=== PATIENT | female | born 1990 | race African-American/Black ===

== ENCOUNTER 2016-08-26 14:20 | Emergency (ER) | payer MEDICAID ==
[2016-08-26 14:32] VITALS: BP 118/90
--- NOTE | 2016-08-26 14:44 | ED ---
Headache - History Of Current Complaint Chief Complaint: EDDentalPain Stated Complaint: DENTAL PAIN Time Seen by Provider: 08/26/16 14:22 Hx Obtained From: Patient, EMS Onset/Duration: Gradual Onset, Started weeks ago Initially Headache Was: Mild Timing: Constant Character: Dull, Throbbing - really tooth pain causing headache Aggravating Factor: Nothing Allevating Factors: Nothing - Risk Factors SAH Risk Factors: Negative Meningitis Risk Factors: Negative SDH Risk Factors: Negative Temporal Arteritis Risk Factors: Negative PMH/Surg Hx/FS Hx/Imm Hx Previously Healthy: Yes Endocrine/Hematology History: Denies: Hx Anticoagulant Therapy, Hx Blood Disorders, Hx Blood Transfusions, Hx Bone Marrow Disease, Hx Diabetes, Hx Systemic Lupus Erythematosus, Hx Sickle Cell Disease, Hx Thyroid Disease, Hx Anemia, Hx Unexplained Bleeding, Hx Coagulopothy, Autoimmune Disease, Other Endocrine/Hematological Disorders Cardiovascular History: Denies: Hx Aneurysm, Hx Angina, Hx Angioplasty, Hx Atrial Fibrillation, Hx Auto Implanted Cardiovert Defib, Hx Cardiac Arrest, Hx Cardiomegaly, Hx Congestive Heart Failure, Hx Coronary Artery Disease, Hx Deep Vein Thrombosis, Hx Embolism, Hx Hypercholesterolemia, Hx Hypotension, Hx Hypertension, Hx Myocardial Infarction, Hx Pacemaker/ICD, Hx Peripheral Vascular Disease, Hx Rheumatic Fever, Hx Syncope, Hx Valvular Heart Disease, Hx Supraventricular Ventricular Tachycardia Respiratory History: Denies: Hx Asthma, Hx Bronchopulmonary Dysplasia, Hx Chronic Bronchitis, Hx Cystic Fibrosis Infectious Disease History: No Infectious Disease History: Denies: Traveled Outside the [place] in Last 30 Days - Social History Alcohol Use: None Substance Use Type: Reports: None Smoking Status (MU): Never Smoked Tobacco Review of Systems Constitutional: Negative Negative: Fever, Chills, Fatigue, Skin Diaphoresis Eyes: Negative Negative: Photophobia, Blurred Vision, Diplopia ENT: Other Positive: Dental Pain. Negative: Epistaxis, Sore Throat Cardiovascular: Negative Negative: Palpitations, Chest Pain Respiratory: Negative Negative: Shortness Of Breath, Cough Gastrointestinal: Negative Negative: Abdominal Pain, Vomiting, Diarrhea Genitourinary: Negative Negative: no symptoms reported, see HPI, burning, dysuria Musculoskeletal: Negative Negative: Arthralgia, Myalgia, Decreased ROM Skin: Negative Negative: Rash, Bruising Positive: Headache. Negative: Weakness, Paresthesia, Numbness, Syncope, Slurred Speech Psychological: Normal Negative: Anxious, Depressed, Other All Other Systems Reviewed And Are Negative: Yes Physical Exam Triage Information Reviewed: Yes Vital Signs On Initial Exam: Initial Vitals Temp Pulse Resp BP Pulse Ox 98.2 F 107 20 118/90 97 08/26/16 14:25 08/26/16 14:25 08/26/16 14:25 08/26/16 14:25 08/26/16 14:25 Vital Signs Reviewed: Yes Appearance: Positive: Well-Appearing, Pain Distress - mild Skin: Positive: Warm, Skin Color Reflects Adequate Perfusion, Dry Head/Face: Positive: Normal Head/Face Inspection. Negative: Temporal Artery Tenderness, TMJ Tenderness Eyes: Positive: Normal, EOMI, ELISEO, Conjunctiva Clear ENT: Positive: Normal ENT inspection, Hearing grossly normal, Pharynx normal, Pharyngeal erythema, Nasal congestion, Nasal drainage Dental: Positive: Percussion Tenderness @ - left lower molar. Negative: Gross Decay/Caries @, Dental Fracture @, Abscess @ Neck: Positive: Supple - no trismus no facial swelling Respiratory/Lung Sounds: Positive: Clear to Auscultation, Breath Sounds Present Cardiovascular: Positive: Normal, RRR Abdomen Description: Positive: Nontender - gravid Bowel Sounds: Positive: Present Neurological: Positive: Normal, Sensory/Motor Intact, Alert, Oriented to Person Place, Time, CN Intact II-III Psychiatric: Positive: Normal AVPU Assessment: Alert - Parthenon Coma Scale Best Eye Response: 4 - Spontaneous Best Motor Response: 6 - Obeys Commands Best Verbal Response: 5 - Oriented Diagnostics - Vital Signs Vital Signs Temp Pulse Resp BP Pulse Ox 08/26/16 14:32 98.2 F 107 20 118/90 97 08/26/16 14:25 98.2 F 107 20 118/90 97 - Laboratory Lab Statement: Any lab studies that have been ordered have been reviewed, and results considered in the medical decision making process. Headache Course/Dx - Course Course Of Treatment: Patient primarily with tooth ache causing headache, vital signs stable no trismus, pt does not want narcotics and has already taken tylenol. Injection of lidocaine at the site was offered and pt declined. Pt is aware that she needs to return for facial swelling or trismus - Diagnoses Provider Diagnoses: Pain, dental Discharge - Discharge Plan Condition: Stable Disposition: HOME Prescriptions: Penicillin VK TAB* [Penicillin VK 250 mg Tab*] 500 mg PO QID #28 tab Referrals: J Carlos Pace MD [Doctor of Dental Medicine] -
[2016-08-26] MEDS ORDERED: Penicillin VK LIQ* 250 MG/5 ML BTL PO ONE (14:45)
[2016-08-26] MEDS ORDERED: Penicillin VK TAB* 250 MG PO ONE ×2 (15:01)
== END 2016-08-26 15:01 | disposition home or self-care (01) ==
LOC: ED 14:20
DX: K08.89 Other specified disorders of teeth and supporting structures (principal); R51 Headache
CPT/HCPCS: 99281; A9270-GY

== ENCOUNTER 2016-09-16 13:11 | Emergency (ER) | payer SELFPAY ==
[2016-09-16] MEDS ORDERED: Clindamycin 900 MG IVPREMIX(* 900 MG/50 ML SDV IV ONE (17:46)
[2016-09-16] MEDS ORDERED: Acetaminophen TAB* 325 MG PO ONE (17:48)
--- NOTE | 2016-09-16 18:46 | ED ---
Throat Pain/Nasal Congestion - HPI Summary HPI Summary: Patient is 8 month female who presents for the 2nd time in 1 month for dental complaint. She was seen on 08/26 for pain and swelling over left side of lower mandible. She was given penicillin. She states the abscess did not go away and now has grown. She denies fever, fatigue or other signs of infection. She is able to open her mouth. She is otherwise healthy. She feels as though there is a pocket of infection on the right lower side, but cannot feel it from the inside of the mouth. She has pain on palpation to the outside of her cheek. She denies difficulty opening mouth wide, but states it is limited. Denies difficulty swallowing or chewing food. She has taken Tylenol for relief. - History of Current Complaint Chief Complaint: EDDentalPain Time Seen by Provider: 09/16/16 16:26 Hx Obtained From: Patient Onset/Duration: Gradual Onset Severity: Moderate - Epiglottits Risk Factors Epiglottis Risk Factors: Negative - Allergies/Home Medications Allergies/Adverse Reactions: Allergies Allergy/AdvReac Type Severity Reaction Status Date / Time No Known Allergies Allergy Verified 08/26/16 14:55 PMH/Surg Hx/FS Hx/Imm Hx Previously Healthy: Yes Endocrine/Hematology History: Denies: Hx Anticoagulant Therapy, Hx Blood Disorders, Hx Blood Transfusions, Hx Bone Marrow Disease, Hx Diabetes, Hx Systemic Lupus Erythematosus, Hx Sickle Cell Disease, Hx Thyroid Disease, Hx Anemia, Hx Unexplained Bleeding, Other Endocrine/Hematological Disorders Cardiovascular History: Denies: Hx Aneurysm, Hx Angina, Hx Angioplasty, Hx Atrial Fibrillation, Hx Auto Implanted Cardiovert Defib, Hx Cardiac Arrest, Hx Cardiomegaly, Hx Congestive Heart Failure, Hx Coronary Artery Disease, Hx Deep Vein Thrombosis, Hx Embolism, Hx Hypercholesterolemia, Hx Hypotension, Hx Hypertension, Hx Myocardial Infarction, Hx Pacemaker/ICD, Hx Peripheral Vascular Disease, Hx Rheumatic Fever, Hx Syncope, Hx Valvular Heart Disease Respiratory History: Denies: Hx Asthma, Hx Bronchopulmonary Dysplasia, Hx Chronic Bronchitis, Hx Cystic Fibrosis - Immunization History Hx Pertussis Vaccination: No Immunizations Up to Date: Yes Infectious Disease History: No Infectious Disease History: Denies: Traveled Outside the [place] in Last 30 Days - Social History Occupation: Unemployed Lives: With Family Alcohol Use: None Hx Substance Use: No Substance Use Type: Reports: None Hx Tobacco Use: No Smoking Status (MU): Never Smoked Tobacco Do You Chew or Dip Tobacco: No Review of Systems Constitutional: Negative Eyes: Negative Positive: Dental Pain Cardiovascular: Negative Respiratory: Negative Positive: no symptoms reported, see HPI Neurological: Negative Psychological: Normal All Other Systems Reviewed And Are Negative: Yes Physical Exam Triage Information Reviewed: Yes Vital Signs On Initial Exam: Initial Vitals Temp Pulse Resp BP Pulse Ox 97.8 F 101 16 119/79 100 09/16/16 13:17 09/16/16 13:17 09/16/16 13:17 09/16/16 13:17 09/16/16 13:17 Vital Signs Reviewed: Yes Appearance: Positive: Well-Appearing, Well-Nourished Skin: Positive: Warm, Skin Color Reflects Adequate Perfusion Head/Face: Positive: Normal Head/Face Inspection Eyes: Positive: EOMI, ELISEO, Conjunctiva Clear Dental: Positive: Percussion Tenderness @ - left lower jaw, Abscess @ - left lower mandible near tooth 20. swelling noted over cheek with erythema. Respiratory/Lung Sounds: Positive: Clear to Auscultation, Breath Sounds Present Cardiovascular: Positive: Normal, RRR Musculoskeletal: Positive: Strength/ROM Intact Neurological: Positive: Normal, Sensory/Motor Intact Psychiatric: Positive: Normal - Cholo Coma Scale Coma Scale Total: 15 Diagnostics - Vital Signs Vital Signs Temp Pulse Resp BP Pulse Ox 09/16/16 17:59 77 16 100 09/16/16 15:20 98.8 F 99 16 120/77 98 09/16/16 13:17 97.8 F 101 16 119/79 100 - Laboratory Lab Statement: Any lab studies that have been ordered have been reviewed, and results considered in the medical decision making process. EENT Course/Dx - Course Course Of Treatment: Patient treated last month with penicillin, but states bump did not decrease in size. She now notes to larger abscess with swelling. No drainage, foul odor, or dental caries. Patient is 8 months and not safe to do contrasted maxillofacial CT scan. Clindamycin 900 IV given in ED. Dr. Cobb consulted. No ENT coverage currently. Patient denies trismus, able to eat and drink OK and is afebrile. Will treat with PO Clindamycin. Patient knows to follow up for worsening swelling, pain, trismus, difficulty swallowing or develops a fever. Patient is to follow up with OBGYN and dentist. Clindamycin safe in per UTD. - Differential Diagnoses Differential Diagnoses: Dental Abscess, Dental Caries, Odontogenic Pain - Diagnoses Provider Diagnoses: Dental abscess Discharge - Discharge Plan Condition: Stable Disposition: HOME Prescriptions: Clindamycin Cap(NF) [Cleocin 300 mg Cap(NF)] 300 mg PO Q6H #28 cap MDD 4 Patient Education Materials: Dental Abscess (ED) Referrals: No Primary Care Phys,NOPCP [Primary Care Provider] - Additional Instructions: DO NOT SMOKE. You have been diagnosed with dental pain with possible infection. Salt water rinses several times per day will improve healing time. Tylenol three times daily with meals for discomfort. You have been prescribed Clindamycin for 7 days. Take this medication as directed. Follow up with a dentist for routine care to prevent recurrence of infections. Follow up with OBGYN. If fever, worsening pain or swelling develops, see your PCP, dentist or come back to the Emergency Department. If you develop difficulty breathing, swallowing or feel like your throat is closing up, come back to ED immediately. Images - Images Dental: 1 - dental abscess with swelling
[2016-09-16 19:32] VITALS: BP 104/82
== END 2016-09-16 19:33 | disposition home or self-care (01) ==
LOC: ED 13:11
DX: K04.7 Periapical abscess without sinus (principal)
CPT/HCPCS: 96365; 99282; A9270-GY

== ENCOUNTER 2016-11-07 08:52 | Inpatient (IN) | payer MEDICAID ==
[~2016-11-07 08:52] MED LIST: Dinoprostone* 10 MG VAG.SUPP VAGINAL ONE
--- NOTE | 2016-11-07 09:43 | HP ---
History of Present Illness - History of Present Illness Reason for Visit: IUP at 41-4/7 here for postdates cervical ripening History of Present Illness: Hilda is a 25 year-old G1 with MARCUS 10/27/2016 by 6 week ultrasound who presents today for postdates managment with Cervidil for cervical ripening. Routine care initiated in [facility]. Transferred to the midwives at [facility] at 35 weeks x 6 visits. uncomplicated but notable for 2VC. Labs: B+, ABS -, Rubella Imm, +hx varicella in childhood, Normal 3 hour GTT, HepB/HIV/RPR all negative. Did not receive Tdap in . Is a candidate for PP administration. Postdates testing showed normal HAYLEE 12.6 and RNST. 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 TWG 211->233 = 22lbs. Normal 3 hour GTT Heme/Onc: Other - H/H 11.5/33 on 10/02/16 Psych: Other - No history Musculoskeletal: Other - Normal discomforts of Grav: 1 - Past Surgical History Past Surgical History: None - Past Family History Family History: Hypertension - Father, Sister, MGM - Past Social History Smoke: No - quit for Occupation: not currently working Alcohol: None Drugs: None Lives: Other - fiance Domestic Violence: Negative Review of Systems - Medications/Allergies Allergies/Adverse Reactions: Allergies Allergy/AdvReac Type Severity Reaction Status Date / Time No Known Allergies Allergy Verified 08/26/16 14:55 Medications: vitamin daily Exam - Exam Vital Signs: BP 133/89 HR: 76 T: 98.1 General: Alert, Oriented x3, No acute distress HEENT: Atraumatic, PERRLA, Mucous membr. moist/pink Lungs: Clear to auscultation Cardiovascular: Regular rate Abdomen: Soft, No tenderness, Other - Gravid. Consistent with gestational age. FHT: 130bpm. Moderate variability. +Accels. No decels. No UCs. VE: 1cm/long/vtx -2. After pt counseled and consent received Cervidil placed at 0921 Extremities: No edema Skin: No rashes Neurological: Normal gait, Normal speech, Normal tone, Sensation intact Psych/Mental Status: Mental status NL Assessment/Plan - Assessment/Plan Assessment: IUP at 41-4/7 here for postdates cervical ripening No evidence of metabolic acidemia Plan: Cervidil placed. Monitor per protocol. Remove in 12 hour or sooner PRN onset of active labor, tachysystole, intolerance of Cervidil. Re-evaluate in 12 hours or sooner PRN.
--- NOTE | 2016-11-07 21:19 | PN ---
Progress Note - Progress Note SOAP: Subjective: []Pt is more uncomfortable. Breathing with UCs. Cervidil removed at 2109. Objective: []VS: BP 135/95 HR 86 RR 19 T 98.5 FHT: 135 moderate variability. +Accels. No decels UCs q 4-7 min, mild-moderate. Good resting tone VE: Pt declined Assessment: []IUP at 41-4/7 in early labor s/p Cervidil No evidence of metabolic acidemia Plan: []Admit. Begin GBS prophylaxis PRN SROM or with onset active labor. Consider BP labs PRN. See admission note
[2016-11-07] MEDS ORDERED: Nalbuphine* 20 MG/ML 1 ML VIAL IM ONE (23:31)
[2016-11-07] MEDS ORDERED: Promethazine INJ(RESTRICTED)* 25 MG/ML 1 ML VIAL IM ONE (23:31)
[2016-11-07] MEDS ORDERED: Promethazine INJ(RESTRICTED)* 25 MG/ML 1 ML VIAL ONE (23:35)
[2016-11-07] MEDS ORDERED: Nalbuphine* 20 MG/ML 1 ML VIAL ONE (23:35)
[2016-11-08 07:59] LABS: Hematocrit 33 % (35-47); Hemoglobin 10.8 g/dl (12.0-16.0); Mean Corpuscular HGB Conc 33 g/dl (31-36); Mean Corpuscular Hemoglobin 27 pg (27-31); Mean Corpuscular Volume 81 fL (80-97); Mean Platelet Volume 10 um3 (7.4-10.4); Red Blood Count 4.04 10^6/ul (4.0-5.4); Red Cell Distribution Width 15 % (10.5-15); White Blood Count 6.5 10^3/ul (3.5-10.8)
[2016-11-08] MEDS ORDERED: Oxytocin in LR* 20 UNITS/1,000 ML BAG IVPB SCH (09:00)
[2016-11-08 16:12] LABS: ROM Internal QC QC Line Present
[2016-11-08] MEDS ORDERED: OBEPIDURAL* 250 ML ONE (16:43)
[2016-11-08] MEDS ORDERED: Famotidine TAB* 20 MG PO PRN (17:17)
[2016-11-08] MEDS ORDERED: Phenylephrine IV* 40 MCG/ML 10 ML SYRINGE IV PUSH PRN ×2 (17:17)
[2016-11-08] MEDS ORDERED: Sodium Citrate/Citric Acid* 15 ML UDC PO PRN (17:17)
[2016-11-08] MEDS ORDERED: OBEPIDURAL* 250 ML EPIDURAL SCH (18:00)
[2016-11-09] MEDS ORDERED: Ropivacaine* 2 MG/ML 20 ML VIAL (0.2%) ONE (12:49)
[2016-11-09] MEDS ORDERED: Misoprostol TAB* 200 MCG PR ONE (19:25)
[2016-11-09] MEDS ORDERED: Tetan/Diph/Pertus SYR(Tdap)* 0.5 ML SYR(BOOSTRIX) use SYR IM ONE (19:43)
[2016-11-09] MEDS ORDERED: Glycerin ADULT SUPP PR PRN (19:43)
[2016-11-09] MEDS ORDERED: Acetaminophen TAB* 325 MG PO PRN (19:43)
[2016-11-09] MEDS ORDERED: oxyCODONE/Acetamin 5/325 MG* TAB PO PRN (19:43)
[2016-11-09] MEDS ORDERED: Dibucaine 1% 28.35 GM TUBE PR PRN (19:43)
[2016-11-09] MEDS ORDERED: Oxytocin in LR* 20 UNITS/1,000 ML BAG IVPB SCH (19:45)
[2016-11-09] MEDS: Ibuprofen TAB* 600 MG PO PRN (20:25)
[2016-11-09] MEDS: Docusate CAP* 100 MG PO SCH (23:33)
[2016-11-09] MEDS: Witch Hazel PAD* JAR TOPICAL PRN (23:33)
[2016-11-10 07:26] LABS: Hematocrit 26 % (35-47); Hemoglobin 8.7 g/dl (12.0-16.0); Mean Corpuscular HGB Conc 33 g/dl (31-36); Mean Corpuscular Hemoglobin 27 pg (27-31); Mean Corpuscular Volume 81 fL (80-97); Mean Platelet Volume 10 um3 (7.4-10.4); Red Blood Count 3.21 10^6/ul (4.0-5.4); Red Cell Distribution Width 15 % (10.5-15); White Blood Count 10.5 10^3/ul (3.5-10.8)
[2016-11-10] MEDS: Docusate CAP* 100 MG PO SCH ×3 (11:39→20:59)
[2016-11-10] MEDS: Ferrous Gluconate TAB* 324 MG TAB PO SCH ×2 (11:39→20:59)
[2016-11-10] MEDS: Ibuprofen TAB* 600 MG PO PRN ×2 (11:53→20:59)
[2016-11-10] MEDS: Witch Hazel PAD* JAR TOPICAL PRN (20:59)
[2016-11-11] MEDS: Ferrous Gluconate TAB* 324 MG TAB PO SCH (09:23)
[2016-11-11] MEDS: Docusate CAP* 100 MG PO SCH ×2 (09:23→14:03)
[2016-11-11 12:30] VITALS: BP 130/72
[2016-11-11] MEDS: Ibuprofen TAB* 600 MG PO PRN (18:30)
== END 2016-11-11 19:20 | disposition home or self-care (01) | DRG 560 ==
LOC: MCHOBOUT 08:52 → MCHOB 21:11
PROVIDERS: ADMIT Midwife; ATTEND Midwife
PROC: 10E0XZZ Delivery of Products of Conception, External Approach (ICD-10-PCS; principal; 2016-11-09)
PROC: 3E033VJ Introduction of Other Hormone into Peripheral Vein, Percutaneous Approach (ICD-10-PCS; 2016-11-09)
PROC: 10907ZC Drainage of Amniotic Fluid, Therapeutic from Products of Conception, Via Natural or Artificial Opening (ICD-10-PCS; 2016-11-09)
PROC: 0HQ9XZZ Repair Perineum Skin, External Approach (ICD-10-PCS; 2016-11-09)
DX: O48.0 Post-term pregnancy (principal); D64.9 Anemia, unspecified; O70.0 First degree perineal laceration during delivery; O99.824 Streptococcus B carrier state complicating childbirth; O90.81 Anemia of the puerperium; Z3A.41 41 weeks gestation of pregnancy; Z37.0 Single live birth
CPT/HCPCS: 36415; 59200; 81002; 83020; 84112; 85025; 85027; 86850; 86900; 86901; A9270-GY; J2300; J2550; J2795

== ENCOUNTER 2018-03-12 08:21 | Emergency (ER) | payer MEDICAID, OTHER ==
[2018-03-12] MEDS ORDERED: Ketorolac INJ* 30 MG/ML 1 ML VIAL IV PUSH ONE (08:46)
[2018-03-12] MEDS ORDERED: NS 0.9% 1000 ML* 1,000 ML IV ONE (08:46)
[2018-03-12] MEDS ORDERED: Ondansetron INJ* 2 MG/ML VIAL IV ONE (08:46)
--- NOTE | 2018-03-12 08:53 | ED ---
Complex/Multi-Sys Presentation - HPI Summary HPI Summary: Pt. is a 27 y.o female who presents to the ER with numerous complaints. Pt. denies past medical hx. Pt. states her symptoms started today. She c/o h/a, low back pain, lower abd. pain, V/D, dysuria. Pt. states Her child has been sick with similar symptoms. No current modifying factors. - History Of Current Complaint Chief Complaint: EDGeneral Time Seen by Provider: 03/12/18 08:25 Hx Obtained From: Patient - Allergies/Home Medications Allergies/Adverse Reactions: Allergies Allergy/AdvReac Type Severity Reaction Status Date / Time No Known Allergies Allergy Verified 08/26/16 14:55 PMH/Surg Hx/FS Hx/Imm Hx Previously Healthy: Yes Endocrine/Hematology History: Denies: Hx Anticoagulant Therapy, Hx Blood Disorders, Hx Blood Transfusions, Hx Bone Marrow Disease, Hx Diabetes, Hx Systemic Lupus Erythematosus, Hx Sickle Cell Disease, Hx Thyroid Disease, Hx Anemia, Hx Unexplained Bleeding, Other Endocrine/Hematological Disorders Cardiovascular History: Denies: Hx Aneurysm, Hx Angina, Hx Angioplasty, Hx Atrial Fibrillation, Hx Auto Implanted Cardiovert Defib, Hx Cardiac Arrest, Hx Cardiomegaly, Hx Congestive Heart Failure, Hx Coronary Artery Disease, Hx Deep Vein Thrombosis, Hx Embolism, Hx Hypercholesterolemia, Hx Hypotension, Hx Hypertension, Hx Myocardial Infarction, Hx Pacemaker/ICD, Hx Peripheral Vascular Disease, Hx Rheumatic Fever, Hx Syncope, Hx Valvular Heart Disease Respiratory History: Denies: Hx Asthma, Hx Bronchopulmonary Dysplasia, Hx Chronic Bronchitis, Hx Cystic Fibrosis - Immunization History Immunizations Up to Date: Yes Infectious Disease History: No Infectious Disease History: Denies: Traveled Outside the [place] in Last 30 Days - Family History Known Family History: Positive: Other - noncontributory - Social History Occupation: Unemployed Lives: With Family Alcohol Use: None Hx Substance Use: No Substance Use Type: Reports: None Hx Tobacco Use: No Smoking Status (MU): Light Every Day Tobacco Smoker Review of Systems Constitutional: Negative Negative: Fever, Chills Eyes: Negative Positive: Sore Throat Cardiovascular: Negative Negative: Palpitations, Chest Pain Respiratory: Negative Negative: Shortness Of Breath, Cough Positive: Abdominal Pain, Vomiting, Diarrhea, Nausea Positive: dysuria Positive: Myalgia Skin: Negative Positive: Headache All Other Systems Reviewed And Are Negative: Yes Physical Exam Triage Information Reviewed: Yes Vital Signs On Initial Exam: Initial Vitals Temp Pulse Resp BP Pulse Ox 99.6 F 95 16 124/83 97 03/12/18 08:30 03/12/18 08:30 03/12/18 08:30 03/12/18 08:30 03/12/18 08:30 Vital Signs Reviewed: Yes Appearance: Positive: Pain Distress - Pt. lying in bed, appears uncomfortable but nontoxic. Child present. Skin: Positive: Warm, Dry Head/Face: Positive: Normal Head/Face Inspection Eyes: Positive: Normal, EOMI, ELISEO Neck: Positive: Supple Respiratory/Lung Sounds: Positive: Clear to Auscultation, Breath Sounds Present Cardiovascular: Positive: Normal, RRR Abdomen Description: Positive: Other: - Obese. Abd. is soft with subrapubic pain. No rebound tenderness or guarding.. Negative: CVA Tenderness (R), CVA Tenderness (L) Neurological: Positive: Normal, CN Intact II-III Psychiatric: Positive: Affect/Mood Appropriate Diagnostics - Vital Signs Vital Signs Temp Pulse Resp BP Pulse Ox 03/12/18 08:30 99.6 F 95 16 124/83 97 - Laboratory Result Diagrams: 03/12/18 09:06 03/12/18 09:06 Lab Statement: Any lab studies that have been ordered have been reviewed, and results considered in the medical decision making process. Complex Multi-Symp Course/Dx Course Of Treatment: Pt. presenting with the above symptoms. She does have a low grade fever. VS otherwise stable. Suspect viral etiology. Will check basic labs, urine, give fluids zofran and toradol. Blood work and urine are unremarkable. On re-exam pt .is resting more comfortably and feeling better. She is tolerating POs. Will dc pt. home. Rx for zofran sent. To schedule a close f.u apt. withe [facility]. To increase fluids. To return to ER if symptoms change or worsen. - Diagnoses Provider Diagnoses: Viral syndrome Discharge - Sign-Out/Discharge Documenting (check all that apply): Patient Departure - Discharge Plan Condition: Good Disposition: HOME Prescriptions: Ondansetron TAB* [Zofran 4 MG Tab*] 4 mg PO Q6H PRN #12 tab PRN Reason: Nausea Patient Education Materials: Viral Syndrome (ED) Referrals: [facility] [Outside] No Primary Care Phys,NOPCP [Primary Care Provider] - Additional Instructions: Schedule a follow up appointment with the [facility] Increase fluids Tylenol or Motrin for pain as directed Return to ER if symptoms change or worsen - Billing Disposition and Condition Condition: GOOD Disposition: Home
[2018-03-12 09:20] LABS: ABS Basophils 0 10^3/ul (0-0.2); ABS Eosinophils 0 10^3/ul (0-0.6); ABS Lymphocytes 0.6 10^3/ul (1.0-4.8); ABS Monocytes 0.3 10^3/ul (0-0.8); ABS Neutrophils 6.4 10^3/ul (1.5-7.7); ABS Nucleated RBC 0 10^3/ul; Eosinophil % 0.1 % (0-6); Hematocrit 35 % (35-47); Hemoglobin 11.4 g/dl (12.0-16.0); Lymphocyte % 8.5 % (25-47); Mean Corpuscular HGB Conc 33 g/dl (31-36); Mean Corpuscular Hemoglobin 25 pg (27-31); Mean Corpuscular Volume 78 fL (80-97); Nucleated Red Blood Cells % 0.1; Platelet Count 361 10^3/ul (150-450); Red Blood Count 4.51 10^6/ul (4.00-5.40); Red Cell Distribution Width 16 % (10.5-15); White Blood Count 7.3 10^3/ul (3.5-10.8)
[2018-03-12 09:33] LABS: EGFR Non-African American 67.3 (>60)
[2018-03-12 11:43] LABS: Urine Appearance Cloudy; Urine Blood Negative (Negative); Urine Color Yellow; Urine Ketones Negative (Negative); Urine Protein Negative (Negative); Urine Specific Gravity 1.013 (1.010-1.030); Urine Urobilinogen Negative (Negative)
[2018-03-12 12:28] VITALS: BP 117/71
== END 2018-03-12 12:26 | disposition home or self-care (01) ==
LOC: ED 08:21
DX: B34.9 Viral infection, unspecified (principal); R10.9 Unspecified abdominal pain; R11.2 Nausea with vomiting, unspecified; R30.0 Dysuria; R51 Headache; F17.210 Nicotine dependence, cigarettes, uncomplicated; J02.9 Acute pharyngitis, unspecified
CPT/HCPCS: 36415; 80053; 81003; 84702; 85025; 96361; 96374; 96375; 99282; J1885; J2405

== ENCOUNTER 2019-04-14 01:23 | Emergency (ER) | payer OTHER ==
--- OUTSIDE RECORDS SUMMARY | 2019-04-14 01:33 | XMS REPORT | Continuity of Care Document ---
:1990 External Reference #:[id number] Author Name Jamey Dacosta M.D. (transmitted by agent of provider Dasia Neal ) Address [address], [address] [place] [id number] Care Team Providers Name Role Phone Jamey Dacosta III, MD - Internal Care Team Information Head [employer]gage Porter Medicine Lorenzo Herbert MD - Plastic and Care Team Information Head Baggage Porter [phone] Reconstructive Surgery Zak Ayers MD - Surgery Care Team Information Head [employer]gage Porter [phone] Problems Description No Information Available Social History Type Date Description Comments Sex Unknown Tobacco Use Start: Unknown Light tobacco smoker (10 or fewer cigarettes/day) Smoking Status Reviewed: 02/25/19 Light tobacco smoker (10 or fewer cigarettes/day) Allergies, Adverse Reactions, Alerts Description No Known Drug Allergies Medications Description No Active Medications Immunizations CPT Code Status Date Vaccine Reaction Lot # [id number] Given 02/25/2019 Pneumonia Vaccine shot tolerated well, no [id number] immediate reaction. [id number] Given 02/25/2019 Tdap - shot tolerated well, no [id number] Tetanus/Diptheria/Acellul immediate reaction ar Pertussis Vital Signs Date Vital Result Comment 02/25/2019 2:21pm Height 64 inches 5'4" Weight 219.00 lb Heart Rate 74 /min BP Systolic Sitting 120 mmHg BP Diastolic Sitting 89 mmHg O2 % BldC Oximetry 97 % BMI (Body Mass Index) 37.6 kg/m2 Results Description No Information Available Procedures Description No Information Available Medical Devices Description No Information Available Encounters Description No Information Available Assessments Date Code Description Provider 02/25/2019 Z00.00 Encounter for general adult medical Jamey Dacosta M.D. examination without abnormal findings 02/25/2019 R51 Headache Jamey Dacosta M.D. 02/25/2019 M54.9 Dorsalgia, unspecified Jamey Dacosta M.D. Plan of Treatment 02/25/2019 - Jamey Dacosta M.D.Z00.00 Encounter for general adult medical examination without abnormal findingsComments:Tdap and Pneumovax today; yearly flu shots advised. Routine labs by her [employer] 2 years ago ok per pt; will check Portr system for results. Smoking cessation and adult aerobic exercise goals [id number] HeadacheNew Orders:Overnight Oximetry, Ordered: Comments:New c/o frequent headaches with no prodromal sx or other associated sx. OTC analgesics recommended as soon as sx noted; overnight oximetry also [id number] Dorsalgia, unspecifiedComments:Chronic backache sx with large breasts; better around 10 years ago after pt lost weight. Pt interested in breast reduction surgery. Discussed surgical option for weight loss in addition to breast reduction and referrals for both options entered. [employer] consult also offered if desiredReferral:Lorenzo Herbert MD, Surgery,Plastic/RconstveZak Ayers MD, Surgery,General Functional Status Description No Information Available Mental Status Description No Information Available Referrals Refer to Reason for Referral Status Appt Date Lorenzo Herbert MD Chronic backache sx; pt interested in Created possible breast reduction surgery [address] [place] [address] [phone] Zak Ayers MD Chronic backache sx from large breasts; eval for Created possible bariatric surgical Rx [address] [facility] [address] [phone]
[2019-04-14] MEDS ORDERED: Penicillin VK TAB* 250 MG PO ONE (02:05)
[2019-04-14] MEDS ORDERED: Bupivacaine 0.5%* 50 ML MDV VIAL INJ ONE (02:07)
[2019-04-14] MEDS ORDERED: Silver Nitrate/Potassium Nitr* 1 EA STICK ONE (02:19)
[2019-04-14] MEDS ORDERED: Bupivacaine 0.5% PF 10 ML SDV VIAL INJ ONE (02:30)
[2019-04-14] MEDS: Silver Nitrate/Potassium Nitr* 1 EA STICK TOPICAL ONE ×2 (02:31→02:46)
--- NOTE | 2019-04-14 02:32 | ED ---
Throat Pain/Nasal Congestion - HPI Summary HPI Summary: Patient is a 28 y/o F presenting to the ED for a chief complaint of left-sided dental pain for the last week. Patient reports dental pain on the same tooth where she previously had a root canal. Patient took Tylenol, Advil, and ibuprofen with limited relief. Patient denies fever, myalgia, cough, or headache. Patient denies any significant PMHx. On 04/17/19, patient will see her dentist. - History of Current Complaint Chief Complaint: EDDentalPain Time Seen by Provider: 04/14/19 02:01 Hx Obtained From: Patient Onset/Duration: Sudden Onset, Lasting Days, Still Present Severity: Moderate Associated Signs And Symptoms: Positive: Negative Cough: None - Allergies/Home Medications Allergies/Adverse Reactions: Allergies Allergy/AdvReac Type Severity Reaction Status Date / Time No Known Allergies Allergy Verified 04/14/19 01:28 PMH/Surg Hx/FS Hx/Imm Hx Previously Healthy: Yes Endocrine/Hematology History: Denies: Hx Anticoagulant Therapy, Hx Blood Disorders, Hx Blood Transfusions, Hx Bone Marrow Disease, Hx Diabetes, Hx Systemic Lupus Erythematosus, Hx Sickle Cell Disease, Hx Thyroid Disease, Hx Anemia, Hx Unexplained Bleeding, Other Endocrine/Hematological Disorders Cardiovascular History: Denies: Hx Aneurysm, Hx Angina, Hx Angioplasty, Hx Atrial Fibrillation, Hx Auto Implanted Cardiovert Defib, Hx Cardiac Arrest, Hx Cardiomegaly, Hx Congestive Heart Failure, Hx Coronary Artery Disease, Hx Deep Vein Thrombosis, Hx Embolism, Hx Hypercholesterolemia, Hx Hypotension, Hx Hypertension, Hx Myocardial Infarction, Hx Pacemaker/ICD, Hx Peripheral Vascular Disease, Hx Rheumatic Fever, Hx Syncope, Hx Valvular Heart Disease Respiratory History: Denies: Hx Asthma, Hx Bronchopulmonary Dysplasia, Hx Chronic Bronchitis, Hx Cystic Fibrosis Sensory History: Denies: Hx Legally Blind, Hx Deafness Opthamlomology History: Denies: Hx Legally Blind EENT History: Denies: Hx Deafness - Surgical History Surgical History: None Surgery Procedure, Year, and Place: None Infectious Disease History: No Infectious Disease History: Denies: Traveled Outside the [place] in Last 30 Days - Family History Known Family History: Negative: Cardiac Disease, Diabetes - Social History Occupation: Employed Full-time Lives: With Family Alcohol Use: None Hx Substance Use: No Substance Use Type: Reports: None Hx Tobacco Use: Yes Smoking Status (MU): Light Every Day Tobacco Smoker Review of Systems Negative: Fever Positive: Dental Pain Negative: Cough Negative: Myalgia Negative: Headache All Other Systems Reviewed And Are Negative: Yes Physical Exam - Summary Physical Exam Summary: Appearance: Well-appearing, Well-nourished, lying in bed comfortably Skin: Warm, dry, no obvious rash Eyes: sclera anicteric, no conjunctival pallor ENT: mucous membranes moist, pharynx appears normal. Left lower bicuspid appears to have had dental work, no pointing in the gingiva. Neck: Supple, nontender Respiratory: Clear to auscultation, no signs of respiratory distress Cardiovascular: Normal S1, S2. No murmurs. Normal distal pulses in tibial and radial bilaterally. Abdomen: Soft, nontender, normal active bowel sounds present Musculoskeletal: Normal, Strength/ROM Intact Neurological: A&Ox3, awake and alert, mentation is normal, speech is fluent and appropriate Psychiatric: affect is normal, does not appear anxious or depressed Triage Information Reviewed: Yes Vital Signs On Initial Exam: Initial Vitals Temp Pulse Resp BP Pulse Ox 98.9 F 65 20 173/118 100 04/14/19 01:25 04/14/19 01:25 04/14/19 01:25 04/14/19 01:25 04/14/19 01:25 Vital Signs Reviewed: Yes Procedures - Sedation Patient Received Moderate/Deep Sedation with Procedure: No Diagnostics - Vital Signs Vital Signs Temp Pulse Resp BP Pulse Ox 04/14/19 01:25 98.9 F 65 20 173/118 100 - Laboratory Lab Statement: Any lab studies that have been ordered have been reviewed, and results considered in the medical decision making process. EENT Course/Dx - Course Course Of Treatment: Patient is a 28 y/o F presenting to the ED for a chief complaint of left-sided dental pain for the last week. Patient reports dental pain on the same tooth where she previously had a root canal. Patient took Tylenol, Advil, and ibuprofen with limited relief. Patient denies fever, myalgia , cough, or headache. Patient denies any significant PMHx. On 04/17/19, patient will see her dentist. On exam, left lower bicuspid appears to have had dental work, no pointing in the gingiva. In the ED course, patient was given bupivacaine 10 ml INJ, penicillin 500 mg PO, and silver nitrate 1 ea TOPICAL. Patient will be discharged with a diagnosis of dental abscess. Follow up with PCP in 2 days. - Diagnoses Provider Diagnoses: Dental abscess Discharge ED - Sign-Out/Discharge Documenting (check all that apply): Patient Departure - Discharge - Discharge Plan Condition: Good Disposition: HOME Prescriptions: Penicillin VK TAB* [Penicillin VK 250 mg Tab*] 500 mg PO QID #40 tab Patient Education Materials: Dental Abscess (ED) Referrals: Jamey Dacosta MD [Primary Care Provider] - Additional Instructions: Make sure to keep your appt with the dentist, it should be getting better over the next couple of days but you will still need work done on the tooth. - Billing Disposition and Condition Condition: GOOD Disposition: Home - Attestation Statements Document Initiated by Jose Cruz: Yes Documenting Scribe: Minerva Villaseñor Provider For Whom Jose Cruz is Documenting (Include Credential): Crispin Logan MD Scribe Attestation: Minerva Shanks scribed for Crispin Logan MD on 04/17/19 at 0308. Scribe Documentation Reviewed: Yes Provider Attestation: The documentation as recorded by the Minerva castellanos accurately reflects the service I personally performed and the decisions made by , Crispin Logan MD Status of Scribe Document: Viewed
[2019-04-14 02:48] VITALS: BP 153/92
== END 2019-04-14 02:48 | disposition home or self-care (01) ==
LOC: ED 01:23
DX: K04.7 Periapical abscess without sinus (principal); F17.200 Nicotine dependence, unspecified, uncomplicated
CPT/HCPCS: 99282; A9270-GY; J3490

== ENCOUNTER 2019-06-05 19:35 | Emergency (ER) | payer OTHER ==
[2019-06-05] MEDS ORDERED: Ibuprofen TAB* 400 MG PO ONE (20:10)
--- NOTE | 2019-06-05 20:14 | ED ---
GI/ HPI - HPI Summary HPI Summary: This patient is a 30 year old female presenting to [facility] with a chief complaint of right flank pain and cough. She states she started feeling the flank pain yesterday and has been coughing all day today. She states the flank pain worsens with cough. She states her last period was 8 weeks ago, although she states they are irregular. - History of Current Complaint Chief Complaint: EDFlankPain Time Seen by Provider: 06/05/19 20:06 Stated Complaint: GENERAL ILLNESS PER EMS Hx Obtained From: Patient Onset/Duration: Started Days Ago Pain Intensity: 4 Location of Pain: Flank - Allergy/Home Medications Allergies/Adverse Reactions: Allergies Allergy/AdvReac Type Severity Reaction Status Date / Time No Known Allergies Allergy Verified 04/14/19 01:28 PMH/Surg Hx/FS Hx/Imm Hx Endocrine/Hematology History: Denies: Hx Anticoagulant Therapy, Hx Blood Disorders, Hx Blood Transfusions, Hx Bone Marrow Disease, Hx Diabetes, Hx Systemic Lupus Erythematosus, Hx Sickle Cell Disease, Hx Thyroid Disease, Hx Anemia, Hx Unexplained Bleeding, Other Endocrine/Hematological Disorders Cardiovascular History: Denies: Hx Aneurysm, Hx Angina, Hx Angioplasty, Hx Atrial Fibrillation, Hx Auto Implanted Cardiovert Defib, Hx Cardiac Arrest, Hx Cardiomegaly, Hx Congestive Heart Failure, Hx Coronary Artery Disease, Hx Deep Vein Thrombosis, Hx Embolism, Hx Hypercholesterolemia, Hx Hypotension, Hx Hypertension, Hx Myocardial Infarction, Hx Pacemaker/ICD, Hx Peripheral Vascular Disease, Hx Rheumatic Fever, Hx Syncope, Hx Valvular Heart Disease Respiratory History: Denies: Hx Asthma, Hx Bronchopulmonary Dysplasia, Hx Chronic Bronchitis, Hx Cystic Fibrosis Sensory History: Denies: Hx Legally Blind, Hx Deafness Opthamlomology History: Denies: Hx Legally Blind - Surgical History Surgery Procedure, Year, and Place: None Infectious Disease History: No Infectious Disease History: Denies: Traveled Outside the [place] in Last 30 Days - Family History Known Family History: Negative: Cardiac Disease, Diabetes - Social History Alcohol Use: Occasionally Hx Substance Use: No Substance Use Type: Reports: None Hx Tobacco Use: Yes Smoking Status (MU): Current Some Day Smoker Review of Systems Positive: Cough Positive: flank pain All Other Systems Reviewed And Are Negative: Yes Physical Exam - Summary Physical Exam Summary: General: Obese FEMALE. No acute distress. HEENT: Normocephalic, Atraumatic. Eyes: Conjuctiva normal, PERRL. Oropharynx: Clear, mucous membranes moist, (-) exudates. Neck: Soft, FROM, (-) lymphadenopathy, (-) thyromegaly, (-) JVD. Cardiovascular: Normal sinus rhythm, (-) murmur. Lungs: Clear to auscultation bilaterally (-) wheezes, (-) rales, (-) rhonchi. Abdomen: Soft, Right lateral tenderness to palpation lower rib area, non- distended, (-) organomegaly, normal bowel sounds. Back: (-) CVA tenderness Extremities: No edema. Skin: Warm, dry, (-) rash. Neuro: Alert and oriented x3, no focal deficits. Psychiatric: Mood normal, affect normal. Triage Information Reviewed: Yes Vital Signs On Initial Exam: Initial Vitals Temp Pulse Resp BP Pulse Ox 96.8 F 89 18 135/105 98 06/05/19 19:41 06/05/19 19:41 06/05/19 19:41 06/05/19 19:41 06/05/19 19:41 Vital Signs Reviewed: Yes Procedures - Sedation Patient Received Moderate/Deep Sedation with Procedure: No Diagnostics - Vital Signs Vital Signs Temp Pulse Resp BP Pulse Ox 06/05/19 19:41 96.8 F 89 18 135/105 98 - Laboratory Result Diagrams: 06/05/19 20:34 06/05/19 20:34 Lab Statement: Any lab studies that have been ordered have been reviewed, and results considered in the medical decision making process. - Radiology CXR Radiology Interpretation Completed By: ED Physician Summary of Radiographic Findings: No infliltrate, no pleural effusion. Pending official radiologist report. GIGU Course/Dx - Course Course Of Treatment: 28 year old female presents by ambulance with son. both ill with cough patient states she has been coughing for two days and has pain in her right side with cough. afraid she is making side worse everytime she coughs. no fevers or sob. no n/v/d. pain worse with moving, touch and cough. tried tylenol wihtout relief. cxr negative. patient's symptoms improved with ibuprofen. advised heat or ice to the area. ibuprofen. cough syrup as needed. follow up with PCP, follow up sooner for any worsening symptoms. - Diagnoses Provider Diagnoses: Bronchitis, Right-sided chest wall pain Discharge ED - Sign-Out/Discharge Documenting (check all that apply): Patient Departure - Discharge - Discharge Plan Condition: Stable Disposition: HOME Patient Education Materials: Acute Bronchitis (ED) Referrals: Jamey Dacosta MD [Primary Care Provider] - Additional Instructions: Return to ED with new or worsening symptoms. - Billing Disposition and Condition Condition: STABLE Disposition: Home - Attestation Statements Document Initiated by Scribe: Yes Documenting Scribe: Omari Teran Provider For Whom Jose Cruz is Documenting (Include Credential): Norma Beasley MD Scribe Attestation: Omari Shanks, scribed for Norma Beasley MD on 06/05/19 at [id number]. Scribe Documentation Reviewed: Yes Provider Attestation: The documentation as recorded by the Omari castellanos accurately reflects the service I personally performed and the decisions made by , Norma Beasley MD Status of Scribe Document: Viewed
[2019-06-05 20:47] LABS: ABS Basophils 0.1 10^3/ul (0-0.2); ABS Eosinophils 0.1 10^3/ul (0-0.6); ABS Lymphocytes 2.6 10^3/ul (1.0-4.8); ABS Monocytes 0.7 10^3/ul (0-0.8); ABS Neutrophils 3.7 10^3/ul (1.5-7.7); Eosinophil % 1.2 %; Hematocrit 39 % (35-47); Hemoglobin 13.8 g/dL (12.0-16.0); Lymphocyte % 36.4 %; Mean Corpuscular HGB Conc 36 g/dL (31-36); Mean Corpuscular Hemoglobin 29 pg (27-31); Mean Corpuscular Volume 82 fL (80-97); Mean Platelet Volume 9.1 fL (7.4-10.4); Nucleated Red Blood Cells % 0.1; Platelet Count 326 10^3/uL (150-450); Red Blood Count 4.71 10^6 /uL (3.70-4.87); Red Cell Distribution Width 15 % (10-15); White Blood Count 7.1 10^3/uL (3.5-10.8)
[2019-06-05 21:00] LABS: ALT 11 U/L (7-52); AST 14 U/L (13-39); Albumin 4.1 g/dL (3.2-5.2); Albumin/Globulin Ratio 1.2 (1-3); Alkaline Phosphatase 63 U/L (34-104); Anion Gap 7 mmol/L (2-11); BUN/Creatinine Ratio 15.2 (8-20); Blood Urea Nitrogen 14 mg/dL (6-24); CO2 Carbon Dioxide 25 mmol/L (22-32); Calcium 9.2 mg/dL (8.6-10.3); Chloride 107 mmol/L (101-111); EGFR Non-African American 72.7 (>60); Globulin 3.4 g/dL (2-4); Glucose 97 mg/dL (70-100); Potassium 4.4 mmol/L (3.5-5.0); Sodium 139 mmol/L (135-145); Total Protein 7.5 g/dL (6.4-8.9)
[2019-06-05 21:05] LABS: HCG Pregnancy < 0.60 mIU/mL
[2019-06-05 22:49] VITALS: BP 133/108
== END 2019-06-05 22:40 | disposition home or self-care (01) ==
LOC: ED 19:35
DX: J40 Bronchitis, not specified as acute or chronic (principal); R07.89 Other chest pain; R10.84 Generalized abdominal pain; R05 Cough; Z72.0 Tobacco use
CPT/HCPCS: 36415; 71045; 80053; 84702; 85025; 99282; A9270-GY